=== PATIENT | female | born 1950 ===

== ENCOUNTER 2020-06-29 09:55 | Emergency (ER) | payer MEDICARE, BC ==
[2020-06-29 10:46] LABS: ANION GAP 12.9 mEq/L (7-13); CHLORIDE,CL 101 mmol/L (98-107); SODIUM,NA 137 mmol/L (136-145)
--- NOTE | 2020-06-29 10:47 | EDM.PDOC ---
ED HPI GENERAL MEDICAL PROBLEM - General Chief Complaint: General Stated Complaint: PAIN UNDER RIB CAGE Time Seen by Provider: 06/29/20 10:35 Source of Information: Reports: Patient History Limitations: Reports: No Limitations - History of Present Illness INITIAL COMMENTS - FREE TEXT/NARRATIVE: This 69 yo female patient reports to the ED with right upper quadrant abdominal pain over the past 2 days. The patient reports she was lifting and moving something heavy, but does not recall any immediate symptoms. The patient reports she has noticed the intermittent pain when she is active, but feels better when she rests. The patient denies any nausea, vomiting or diarrhea. The patient reports no dysuria, frequent urination or blood in her urine. The patient has a past history of breast cancer (originally in 1997) with her last normal check-up in the beginning of June. Onset: Gradual Duration: Day(s):, Intermittent Location: Reports: Abdomen (RUQ) Quality: Reports: Ache Severity: Moderate Improves with: Reports: Rest Worsens with: Reports: Movement Context: Reports: Activity Associated Symptoms: Reports: No Other Symptoms - Related Data Allergies Allergy/AdvReac Type Severity Reaction Status Date / Time amoxicillin Allergy Rash Verified 06/29/20 10:06 codeine Allergy Vomiting Verified 06/29/20 10:06 Home Meds: Home Meds Cholecalciferol (Vitamin D3) [Vitamin D3] 50 mcg PO DAILY 06/29/20 [History] Cyanocobalamin (Vitamin B-12) [B-12] 1,000 mcg PO DAILY 06/29/20 [History] Dapagliflozin Propanediol [Farxiga] 10 mg PO DAILY 06/29/20 [History] Fenofibrate 160 mg PO DAILY 06/29/20 [History] Simvastatin [Zocor] 20 mg PO DAILY 06/29/20 [History] glipiZIDE [Glipizide ER] 2.5 mg PO BID 06/29/20 [History] metFORMIN [Glucophage] 500 mg PO DAILY 06/29/20 [History] Past Medical History Cardiovascular History: Reports: High Cholesterol Psychiatric History: Reports: Anxiety Oncologic (Cancer) History: Reports: Breast - Infectious Disease History Infectious Disease History: Reports: Chicken Pox, Measles - Past Surgical History Oncologic Surgical History: Reports: Lumpectomy Other Oncologic Surgeries/Procedures: L breast Social & Family History - Tobacco Use Tobacco Use Status *Q: Never Tobacco User - Caffeine Use Caffeine Use: Reports: None - Recreational Drug Use Recreational Drug Use: No ED ROS GENERAL - Review of Systems Review Of Systems: Comprehensive ROS is negative, except as noted in HPI. ED EXAM, GENERAL - Physical Exam Exam: See Below Exam Limited By: No Limitations General Appearance: Alert, WD/WN, Moderate Distress Eye Exam: Bilateral Eye: EOMI, Normal Inspection, PERRL Ears: Normal External Exam, Normal Canal, Hearing Grossly Normal, Normal TMs Nose: Normal Inspection, Normal Mucosa, No Blood Throat/Mouth: Normal Inspection, Normal Lips, Normal Teeth, Normal Gums, Normal Oropharynx, Normal Voice, No Airway Compromise Head: Atraumatic, Normocephalic Neck: Normal Inspection, Supple, Non-Tender, Full Range of Motion Respiratory/Chest: No Respiratory Distress, Lungs Clear, Normal Breath Sounds, No Accessory Muscle Use, Chest Non-Tender Cardiovascular: Normal Peripheral Pulses, Regular Rate, Rhythm, No Edema, No Gallop, No JVD, No Murmur, No Rub GI/Abdominal: Normal Bowel Sounds, Soft, Non-Tender, No Organomegaly, No Distention, No Abnormal Bruit, No Mass, Pelvis Stable (Female) Exam: Deferred Rectal (Female) Exam: Deferred Back Exam: Normal Inspection, Full Range of Motion, NT Extremities: Normal Inspection, Normal Range of Motion, Non-Tender, Normal Capillary Refill, No Pedal Edema Neurological: Alert, Oriented, CN II-XII Intact, Normal Cognition, Normal Gait, Normal Reflexes, No Motor/Sensory Deficits Psychiatric: Normal Affect, Normal Mood Skin Exam: Warm, Dry, Intact, Normal Color, No Rash Lymphatic: No Adenopathy Course - Vital Signs Last Recorded V/S: Last Vital Signs Temp 36.3 C 06/29/20 09:59 Pulse 85 06/29/20 09:59 Resp 18 06/29/20 09:59 BP 177/86 H 06/29/20 09:59 Pulse Ox 95 06/29/20 09:59 - Orders/Labs/Meds Orders: Active Orders 24 hr Category Date Time Status EKG Documentation Completion [RC] STAT Care 06/29/20 10:07 Ordered CULTURE BLOOD [BC] Stat Lab 06/29/20 10:06 Ordered Labs: Laboratory Tests 06/29/20 06/29/20 06/29/20 Range/Units 10:17 10:17 10:17 WBC 4.8 L (5.0-10.0) 10^3/uL RBC 5.14 (4.2-5.4) 10^6/uL Hgb 15.0 (12.0-16.0) g/dL Hct 45.0 (37.0-47.0) % MCV 87.5 (80-100) fL MCH 29.2 (27.0-34.0) pg MCHC 33.3 (33.0-35.0) g/dL Plt Count 298 (150-450) 10^3/uL Neut % (Auto) 54.1 (42.2-75.2) % Lymph % (Auto) 36.2 (20.5-50.1) % [facility] % (Auto) 7.6 (2-8) % Eos % (Auto) 1.7 (1.0-3.0) % Baso % (Auto) 0.4 (0.0-1.0) % Sodium 137 (136-145) mmol/L Potassium 3.9 (3.5-5.1) mmol/L Chloride 101 (98-107) mmol/L Carbon Dioxide 27 (21-32) mmol/L Anion Gap 12.9 (7-13) mEq/L BUN 21 H (7-18) mg/dL Creatinine 1.11 H (0.55-1.02) mg/dL Est Cr Clr Drug Dosing 33.39 mL/min Estimated GFR (MDRD) 48 BUN/Creatinine Ratio 18.9 (No establ ref range) Glucose 233 H (74-99) mg/dL Lactic Acid 1.5 (0.4-2.0) mmol/L Calcium 9.6 (8.5-10.1) mg/dL Total Bilirubin 0.5 (0.2-1.0) mg/dL AST 20 (15-37) U/L ALT 38 (14-59) U/L Alkaline Phosphatase 65 (46-116) U/L Troponin I < 0.017 (0.000-0.056) ng/mL Total Protein 7.7 (6.4-8.2) g/dL Albumin 4.0 (3.4-5.0) g/dL Globulin 3.7 Albumin/Globulin Ratio 1.1 Amylase 19 L (25-115) U/L Lipase 45 L (73-393) U/L Urine Color (YELLOW) Urine Appearance (CLEAR) Urine pH (5.0-9.0) Ur Specific [place] (1.005-1.030) Urine Protein (NEGATIVE) Urine Glucose (UA) (NEGATIVE) Urine Ketones (NEGATIVE) Urine Occult Blood (NEGATIVE) Urine Nitrite (NEGATIVE) Urine Bilirubin (NEGATIVE) Urine Urobilinogen (0.2-1.0) mg/dL Ur Leukocyte Esterase (NEGATIVE) 06/29/20 Range/Units 11:09 WBC (5.0-10.0) 10^3/uL RBC (4.2-5.4) 10^6/uL Hgb (12.0-16.0) g/dL Hct (37.0-47.0) % MCV (80-100) fL MCH (27.0-34.0) pg MCHC (33.0-35.0) g/dL Plt Count (150-450) 10^3/uL Neut % (Auto) (42.2-75.2) % Lymph % (Auto) (20.5-50.1) % [facility] % (Auto) (2-8) % Eos % (Auto) (1.0-3.0) % Baso % (Auto) (0.0-1.0) % Sodium (136-145) mmol/L Potassium (3.5-5.1) mmol/L Chloride (98-107) mmol/L Carbon Dioxide (21-32) mmol/L Anion Gap (7-13) mEq/L BUN (7-18) mg/dL Creatinine (0.55-1.02) mg/dL Est Cr Clr Drug Dosing mL/min Estimated GFR (MDRD) BUN/Creatinine Ratio (No establ ref range) Glucose (74-99) mg/dL Lactic Acid (0.4-2.0) mmol/L Calcium (8.5-10.1) mg/dL Total Bilirubin (0.2-1.0) mg/dL AST (15-37) U/L ALT (14-59) U/L Alkaline Phosphatase (46-116) U/L Troponin I (0.000-0.056) ng/mL Total Protein (6.4-8.2) g/dL Albumin (3.4-5.0) g/dL Globulin Albumin/Globulin Ratio Amylase (25-115) U/L Lipase (73-393) U/L Urine Color Yellow (YELLOW) Urine Appearance Clear (CLEAR) Urine pH 7.0 (5.0-9.0) Ur Specific [place] 1.020 (1.005-1.030) Urine Protein Negative (NEGATIVE) Urine Glucose (UA) 500 H (NEGATIVE) Urine Ketones Negative (NEGATIVE) Urine Occult Blood Negative (NEGATIVE) Urine Nitrite Negative (NEGATIVE) Urine Bilirubin Negative (NEGATIVE) Urine Urobilinogen 0.2 (0.2-1.0) mg/dL Ur Leukocyte Esterase Negative (NEGATIVE) Meds: Medications Discontinued Medications Generic Name Dose Route Start Last Admin Trade Name Freq PRN Reason Stop Dose Admin Iopamidol 100 ml 06/29/20 11:32 06/29/20 11:56 Isovue-300 (61%) IVPUSH 06/29/20 11:33 75 ml ONETIME ONE Administration Departure - Departure Time of Disposition: 12:34 Disposition: Home, Self-Care 01 Preliminary Cause of *Q: Sepsis & Multi System Organ Failure Condition: Fair Clinical Impression: Disease of gallbladder Abdominal muscle strain Qualifiers: Encounter type: initial encounter Qualified Code(s): S39.011A - Strain of muscle, fascia and tendon of abdomen, initial encounter - Discharge Information *PRESCRIPTION DRUG MONITORING PROGRAM REVIEWED*: Not Applicable *COPY OF PRESCRIPTION DRUG MONITORING REPORT IN PATIENT MARTY: Not Applicable Instructions: Muscle Strain, [id number] Forms: ED Department Discharge Care Plan Goals: The patient was advised of the examination, lab and CT results during the visit. The patient was encouraged to rest and relax. The patient was advised to stick to a low fat diet. If the patient has any additional symptoms or concerns, the patient should either visit her primary care facility or return to the emergency department. Sepsis Event Note (ED) - Evaluation Sepsis Screening Result: No Definite Risk - Focused Exam Vital Signs: Vital Signs Temp Pulse Resp BP Pulse Ox 06/29/20 09:59 36.3 C 85 18 177/86 H 95 - My Orders Last 24 Hours: My Active Orders 06/29/20 10:06 CULTURE BLOOD [BC] Stat 06/29/20 10:07 EKG Documentation Completion [RC] STAT - Assessment/Plan Last 24 Hours: My Active Orders 06/29/20 10:06 CULTURE BLOOD [BC] Stat 06/29/20 10:07 EKG Documentation Completion [RC] STAT
[2020-06-29] MEDS ORDERED: Iopamidol 612 MG/ML 100 ML Bottle IVPUSH ONE (11:32)
--- NOTE | 2020-06-29 12:26 | CT ---
EXAMINATION: Abdomen Pelvis w Cont SEX: Female AGE: 69 years CLINICAL HISTORY: 69-year-old 150 pound diabetic female with a history of left breast cancer (lumpectomy) now complaining of right upper quadrant (RUQ) ABDOMINAL PAIN. Scan technique: Volume acquisition of data from the abdomen and pelvis obtained without oral contrast but during the intravenous administration 75 cc nonionic Isovue contrast 3 cc/s via injector while patient was lying supine on the Siemens multislice scanner [place], [place]. All data archived in the PACS system for storage, reformatting axial/sagittal/coronal planes and study. Interpretation: Abnormal. 1. *Distended gallbladder (RUQ) with multiple dependent ossified intraluminal gallstones. Subtle pericystic lucency around the gallbladder wall suggest inflammation and edema. 2. Large homogeneously dense fatty liver. No discrete intrahepatic mass lesion or abnormal dilatation of the intra/extrahepatic biliary ducts. Atrophic pancreas otherwise unremarkable. No mass/major ductal dilatation. 3. Stomach, spleen, adrenal glands and kidneys unremarkable. No renal cortical mass lesion, urolithiasis or signs of obstructive uropathy. Symmetrically distended normal appearing unenhanced urinary bladder. 4. Atheromatous calcifications normal caliber aortoiliac vessels. Spine unremarkable for age. 5. No abdominal or pelvic mass lesion, inflammatory "dirty" peritoneal fat, signs of mechanical bowel obstruction, mesenteric/retroperitoneal lymphadenopathy, ascites or free intraperitoneal air. 6. Lung bases clear. Normal cardiac silhouette. No pericardial or pleural effusions. CONCLUSION: Fatty liver. Diseased gallbladder.
== END 2020-06-29 12:43 | disposition home or self-care (01) ==
LOC: DL.ED 09:55
DX: S39.011A Strain of muscle, fascia and tendon of abdomen, initial encounter (principal); K82.9 Disease of gallbladder, unspecified; E78.00 Pure hypercholesterolemia, unspecified; Z79.899 Other long term (current) drug therapy; Z88.1 Allergy status to other antibiotic agents; Z88.5 Allergy status to narcotic agent; X58.XXXA Exposure to other specified factors, initial encounter
CPT/HCPCS: 36415; 74177; 80053; 81003; 82150; 83605; 83690; 84484; 85025; 87040; 93005; 99284-25; Q9967

== ENCOUNTER 2021-07-16 15:20 | Emergency (ER) | payer MEDICARE, BC ==
[2021-07-16] MEDS ORDERED: Ketorolac 10 MG Tab PO ONE (15:21)
[2021-07-16] MEDS ORDERED: Cyclobenzaprine 10 MG Tab PO ONE (15:21)
[2021-07-16] MEDS ORDERED: Ketorolac 30 MG/ML SDV IM ONE (15:44)
--- NOTE | 2021-07-16 15:53 | EDM.PDOC ---
ED HPI GENERAL MEDICAL PROBLEM - General Chief Complaint: Neck Problem Stated Complaint: PAIN IN NECK Time Seen by Provider: 07/16/21 15:40 Source of Information: Reports: Patient History Limitations: Reports: No Limitations - History of Present Illness INITIAL COMMENTS - FREE TEXT/NARRATIVE: This 70 yo female patient reports to the ED with left sided neck pain which radiates to her left shoulder. The patient reports her symptoms started yesterday and have continued to get worse. The patient took 2 Acetaminophen (650 mg) this morning with no symptom relief. The patient has also used heat for temporary symptom relief. The patient reports no history of trauma or falls. Onset Date: 07/15/21 Duration: Constant, Getting Worse Location: Reports: Neck (left posterior) Quality: Reports: Ache, Sharp Severity: Severe Improves with: Reports: None Worsens with: Reports: None Context: Reports: Other Associated Symptoms: Reports: No Other Symptoms Treatments TRAVEL PROFESSIONAL: Reports: Acetaminophen Left Neck Pain Score (Numeric/FACES): 6 - Related Data Allergies Allergy/AdvReac Type Severity Reaction Status Date / Time amoxicillin Allergy Rash Verified 07/16/21 15:36 codeine Allergy Vomiting Verified 07/16/21 15:36 Home Meds: Home Meds Cholecalciferol (Vitamin D3) [Vitamin D3] 50 mcg PO DAILY 06/29/20 [History] Cyanocobalamin (Vitamin B-12) [B-12] 1,000 mcg PO DAILY 06/29/20 [History] Dapagliflozin Propanediol [Farxiga] 10 mg PO DAILY 06/29/20 [History] Fenofibrate 160 mg PO DAILY 06/29/20 [History] Simvastatin [Zocor] 20 mg PO DAILY 06/29/20 [History] glipiZIDE [Glipizide ER] 2.5 mg PO BID 06/29/20 [History] metFORMIN [Glucophage] 500 mg PO DAILY 06/29/20 [History] PARoxetine HCL [Paroxetine HCl] 5 mg PO DAILY 07/16/21 [History] Past Medical History HEENT History: Reports: None Cardiovascular History: Reports: High Cholesterol Respiratory History: Reports: None Gastrointestinal History: Reports: None Genitourinary History: Reports: None CNC MANAGER History: Reports: None Musculoskeletal History: Reports: None Neurological History: Reports: None Psychiatric History: Reports: Anxiety Endocrine/Metabolic History: Reports: Diabetes, Type II Hematologic History: Reports: None Immunologic History: Reports: None Oncologic (Cancer) History: Reports: Breast, Other (See Below) Other Oncologic History: skin ca Dermatologic History: Reports: None - Infectious Disease History Infectious Disease History: Reports: Chicken Pox, Measles - Past Surgical History Head Surgeries/Procedures: Reports: None Female Surgical History: Reports: Hysterectomy Oncologic Surgical History: Reports: Lumpectomy Other Oncologic Surgeries/Procedures: L breast Social & Family History - Family History Family Medical History: No Pertinent Family History - Tobacco Use Tobacco Use Status *Q: Never Tobacco User Second Hand Smoke Exposure: No - Caffeine Use Caffeine Use: Reports: None - Recreational Drug Use Recreational Drug Use: No ED ROS GENERAL - Review of Systems Review Of Systems: Comprehensive ROS is negative, except as noted in HPI. ED EXAM, UPPER BACK/NECK PAIN - Physical Exam Exam: See Below Exam Limited By: No Limitations General Appearance: Alert, WD/WN, Moderate Distress Eye Exam: Bilateral Eye: EOMI, Normal Inspection, PERRL Ears Exam: Normal External Exam, Normal Canal, Hearing Grossly Normal, Normal TMs Nose Exam: Normal Inspection, Normal Mucousa, No Blood Throat/Mouth Exam: Normal Inspection, Normal Lips, Normal Teeth, Normal Gums, Normal Oropharynx, Normal Voice, No Airway Compromise Head Exam: Atraumatic, Normocephalic Neck Exam: Paraspinous Muscle Tender (left side to left shoulder) Nexus Criteria: No: Posterior, Midline Cervical Tenderness, Evidence of Intoxication, Altered Level of Consciousness, Focal Neurological Deficit, Painful Distraction Injuries Cardiovascular/Respiratory: Regular Rate, Rhythm, No M/R/G, Normal Peripheral Pulses, No JVD, Normal Breath Sounds, No Respiratory Distress GI/Abdominal: Normal Bowel Sounds, Soft, Non-Tender, No Organomegaly, No Distention, No Abnormal Bruit, No Mass (Female) Exam: Deferred Rectal (Female) Exam: Deferred Back Exam: Normal Inspection, Full Range of Motion, NT Extremities: Normal Inspection, Normal Range of Motion, Non-Tender, No Pedal Edema, Normal Capillary Refill Neurologic: grain roaster II-XII nml As Tested, No Motor/Sensory Deficits, Alert, Normal Mood/Affect, Oriented x 3 Course - Vital Signs Last Recorded V/S: Last Vital Signs Temp 98.9 F 07/16/21 15:37 Pulse 76 07/16/21 15:37 Resp 18 07/16/21 15:37 BP 189/98 H 07/16/21 15:37 Pulse Ox 96 07/16/21 15:37 - Orders/Labs/Meds Meds: Medications Discontinued Medications Generic Name Dose Route Start Last Admin Trade Name Rajesh PRN Reason Stop Dose Admin Ketorolac Tromethamine 30 mg 07/16/21 15:44 Ketorolac 30 Mg/Ml Sdv IM 07/16/21 15:45 ONETIME ONE Departure - Departure Time of Disposition: 15:55 Disposition: Home, Self-Care 01 Condition: Fair Clinical Impression: Strain of neck muscle Qualifiers: Encounter type: initial encounter Qualified Code(s): S16.1XXA - Strain of muscle, fascia and tendon at neck level, initial encounter - Discharge Information *PRESCRIPTION DRUG MONITORING PROGRAM REVIEWED*: Not Applicable *COPY OF PRESCRIPTION DRUG MONITORING REPORT IN PATIENT MARTY: Not Applicable Instructions: Muscle Strain, [id number] Care Plan Goals: The patient was advised of the examination results during the visit. The patient was given an injection of Toradol during the visit. The patient was discharged with Toradol (10 mg) #4 to take 1 by mouth every 6 hours and Flexeril (10 mg) #2 to take 1 by mouth every 6 hours at the conclusion of the visit. The patient was also given scripts for Toradol (10 mg) #16 to take 1 by mouth every 6 hours and Flexeril (10 mg) #8 to take 1 by mouth at bedtime as needed. The patient was encouraged to apply heat to the affected area. If the patient has any additional symptoms or concerns, the patient should either return to the emergency department or visit her primary care facility. Sepsis Event Note (ED) - Evaluation Sepsis Screening Result: No Definite Risk - Focused Exam Vital Signs: Vital Signs Temp Pulse Resp BP Pulse Ox 07/16/21 15:37 98.9 F 76 18 189/98 H 96
[2021-07-16] MEDS ORDERED: Ketorolac 10 MG Tab ONE (16:10)
[2021-07-16] MEDS ORDERED: Cyclobenzaprine 10 MG Tab ONE (16:10)
== END 2021-07-16 16:12 | disposition home or self-care (01) ==
LOC: DL.ED 15:20
DX: S16.1XXA Strain of muscle, fascia and tendon at neck level, initial encounter (principal); E78.00 Pure hypercholesterolemia, unspecified; E11.9 Type 2 diabetes mellitus without complications; Z88.0 Allergy status to penicillin; Z88.5 Allergy status to narcotic agent; Z79.899 Other long term (current) drug therapy; Z79.4 Long term (current) use of insulin
CPT/HCPCS: 96372; 99283; A9270; J1885